=== PATIENT | female | born 1955 | race Caucasian/White ===

== ENCOUNTER 2017-04-19 11:06 | Emergency (ER) | payer MEDICAID ==
[~2017-04-19] VITALS: Ht 165.1 cm; Wt 67.0 kg
[~2017-04-19 11:06] MED LIST: PROM6.25 PO
[2017-04-19 12:31] LABS: BASOPHILS % 0.7 % (0.0-2.0); EOSINOPHILS % 2.3 % (0.0-5.0); HEMATOCRIT. 38.6 % (36.0-48.0); HEMOGLOBIN. 13.3 g/dL (12.0-16.0); LYMPHOCYTES % 35.4 % (20.0-50.0); MEAN CORPUSCULAR HEMOGLOBIN 28.2 pg (28.0-32.0); MEAN CORPUSCULAR VOLUME 81.5 fL (81.0-99.0); MEAN PLATELET VOLUME 7.5 fl (7.4-10.4); NEUTROPHILS % 49.6 % (40.0-76.0); PLATELET 273 x1000/uL (130-400); RED BLOOD CELL COUNT 4.74 mill/uL (4.2-5.4)
[2017-04-19 12:32] LABS: PROTHROMBIN TIME 10.4 sec (9.4-11.6)
[2017-04-19 12:42] LABS: CARBON DIOXIDE 27 mEq/L (21-32); CHLORIDE 107 mEq/L (98-107)
[2017-04-19 12:44] LABS: TROPONIN I < 0.02 ng/mL (0.00-0.04)
[2017-04-19 14:11] VITALS: BP 118/69
== END 2017-04-19 14:30 | disposition home or self-care (01) ==
LOC: ER 11:14
DX: B34.9 Viral infection, unspecified (principal); I10 Essential (primary) hypertension; Z98.890 Other specified postprocedural states
CPT/HCPCS: 36415; 71045; 80053; 83880; 84484; 85025; 85610; 93005; 99285

== ENCOUNTER 2019-01-16 18:09 | Emergency (ER) | payer MEDICAID ==
[~2019-01-16] VITALS: Ht 160 cm; Wt 63.0 kg
[~2019-01-16 18:09] MED LIST changes: -PROM6.25 PO; +PROM6.254 PO
[2019-01-16] MEDS ORDERED: DEXAMETHASONE 4MG TABLET PO ONE (22:00)
[2019-01-16] MEDS ORDERED: DIPHENHYDRAMINE 25MG CAPSULE PO ONE (22:00)
[2019-01-16] MEDS ORDERED: FAMOTIDINE 20MG/2ML VIAL IV ONE (22:00)
[2019-01-16] MEDS ORDERED: FAMOTIDINE 20MG TABLET PO ONE (22:15)
[2019-01-16 23:24] VITALS: BP 145/82
== END 2019-01-16 23:20 | disposition home or self-care (01) ==
LOC: ER 18:09
DX: R22.0 Localized swelling, mass and lump, head (principal); Z98.890 Other specified postprocedural states
CPT/HCPCS: 99284; J8540; Q0163; J3490

== ENCOUNTER 2021-10-21 13:56 | Emergency (ER) | payer MEDICAID ==
[~2021-10-21] VITALS: Ht 157.5 cm; Wt 62.0 kg
[2021-10-21] MEDS ORDERED: ASPIRIN 81MG TABLET PO ONE (14:45)
[2021-10-21 15:21] LABS: CHLORIDE 103 mEq/L (98-107)
[2021-10-21 15:23] LABS: BASOPHILS % 0.5 % (0.0-2.0); EOSINOPHILS % 1.2 % (0.0-5.0); HEMATOCRIT. 38.6 % (36.0-48.0); HEMOGLOBIN. 12.9 g/dL (12.0-16.0); LYMPHOCYTES % 27.7 % (20.0-50.0); MEAN PLATELET VOLUME 8.1 fl (7.4-10.4); MONOCYTES % 4.4 % (2.0-8.0); NEUTROPHILS % 66.2 % (40.0-76.0); PLATELET 285 x1000/uL (130-400); RED BLOOD CELL COUNT 4.77 mill/uL (4.2-5.4); RED CELL DISTRIBUTION WIDTH 14.9 % (11.6-14.6)
[2021-10-21 19:52] VITALS: BP 132/78
== END 2021-10-21 19:59 | disposition home or self-care (01) ==
LOC: ER 13:56
DX: R07.89 Other chest pain (principal); I10 Essential (primary) hypertension; E78.5 Hyperlipidemia, unspecified
CPT/HCPCS: 36415; 71045; 80053; 83880; 84484; 85025; 93005; 99285; Z7610